=== PATIENT | male | born 1960 | race Caucasian/White ===

== ENCOUNTER 2018-04-28 10:37 | Emergency (ER) | payer MEDICAID ==
--- NOTE | 2018-04-28 10:45 | ER Document Report ---
ED General - General Stated Complaint: PSYCH EVAL Time Seen by Provider: 04/28/18 10:40 Mode of Arrival: Medic Information source: Emergency Med Personnel Cannot obtain history due to: Altered mental status Notes: Approximately 49-year-old Ashvin Stauffer presents by EMS altered. Patient does not respond to any questions appropriately, he is rhyming and speaks only of his toe saying he "has an ugly toe looking at me looking at you" Patient was found by EMS and no family members there is no identification patient does not appear to have been here previously as I did not recognize him nor does any other staff members - HPI Onset: Just prior to arrival Onset/Duration: Sudden Quality of pain: No pain Severity: Severe Pain Level: Denies Associated symptoms: Other Exacerbated by: Denies Relieved by: Denies Similar symptoms previously: No Recently seen / treated by doctor: No Past Medical History - Social History Smoking Status: Unknown if Ever Smoked Cigarette use (# per day): No Chew tobacco use (# tins/day): No Smoking Education Provided: No Family History: None Review of Systems - Review of Systems Notes: PHYSICAL EXAMINATION: GENERAL: Well-appearing, well-nourished and in no acute distress. HEAD: Atraumatic, normocephalic. EYES: Pupils equal round and reactive to light, extraocular movements intact, sclera anicteric, conjunctiva are normal. ENT: Nares patent, oropharynx clear without exudates. Moist mucous membranes. NECK: Normal range of motion, supple without lymphadenopathy LUNGS: Breath sounds clear to auscultation bilaterally and equal. No wheezes rales or rhonchi. HEART: Regular rate and rhythm without murmurs ABDOMEN: Soft, nontender, nondistended abdomen. No guarding, no rebound. No masses appreciated. Musculoskeletal: Normal range of motion, no pitting or edema. No cyanosis. NEUROLOGICAL: Cranial nerves grossly intact. Abnormal speech, normal gait. Normal sensory, motor exams PSYCH: Bizarre behavior SKIN: Warm, Dry, normal turgor, no rashes or lesions noted. -: Yes ROS unobtainable due to patient's medical condition Physical Exam - Vital signs Vitals: Temp Pulse Resp BP Pulse Ox 97.4 F 91 14 154/120 H 97 04/28/18 10:42 04/28/18 10:42 04/28/18 10:42 04/28/18 10:42 04/28/18 10:42 Course - Re-evaluation Re-evalutation: 04/28/18 10:44 Patient's presentation appears to be psychiatric versus drug related however will need to rule out stroke meningitis and other abnormalities this is a very unclear and quite confusing case 04/28/18 11:08 EMS was able to obtain the name, appears patient was seen here 2 days prior diagnosed with malingering/substance abuse - Vital Signs Vital signs: Temp Pulse Resp BP Pulse Ox 97.4 F 91 18 154/120 H 97 04/28/18 10:42 04/28/18 10:42 04/28/18 11:55 04/28/18 10:42 04/28/18 10:42 - Laboratory Result Diagrams: 04/28/18 11:12 04/28/18 11:12 Laboratory results interpreted by me: 04/28/18 04/28/18 11:12 11:31 Sodium 146.4 H Potassium 3.1 L Carbon Dioxide 31 H BUN 23 H Glucose 125 H Direct Bilirubin 0.5 H AST 64 H Creatine Kinase 933 H Total Protein 8.8 H Urine Protein 30 H Urine Ketones 20 H Urine Urobilinogen 4.0 H Salicylates < 1.0 L Acetaminophen < 10 L Discharge - Discharge Clinical Impression: Psychosis Qualifiers: Psychosis type: unspecified psychosis type Qualified Code(s): F29 - Unspecified psychosis not due to a substance or known physiological condition Condition: Stable Disposition: PSYCH HOSP/UNIT
--- NOTE | 2018-04-28 11:08 | RADIOLOGY REPORT (SQ) ---
EXAM DESCRIPTION: CT HEAD WITHOUT COMPLETED DATE/TIME: 04/28/2018 10:56 am REASON FOR STUDY: altered COMPARISON: None. TECHNIQUE: Axial images acquired through the brain without intravenous contrast. Images reviewed wi th bone, brain and subdural windows. Additional sagittal and coronal reconstructions were generated. Images stored on PACS. All CT scanners at this facility use dose modulation, iterative reconstruction, and/or weight based d osing when appropriate to reduce radiation dose to as low as reasonably achievable (ALARA). [facility]: Dose Right [facility]: CareDose [facility]: Dose Right [facility]: Teradose 4D [facility]: [employer] RADIATION DOSE: CT Rad equipment meets quality standard of care and radiation dose reduction techniq ues were employed. CTDIvol: 53.2 mGy. DLP: 1124 mGy-cm. mGy. LIMITATIONS: None. FINDINGS: VENTRICLES: Normal size and contour. CEREBRUM: No masses. No hemorrhage. No midline shift. No evidence for acute infarction. Normal gra y/white matter differentiation. No areas of low density in the white matter. CEREBELLUM: No masses. No hemorrhage. No alteration of density. No evidence for acute infarction. EXTRAAXIAL SPACES: No fluid collections. No masses. ORBITS AND GLOBE: No intra- or extraconal masses. Normal contour of globe without masses. CALVARIUM: No fracture. PARANASAL SINUSES: No fluid or mucosal thickening. SOFT TISSUES: No mass or hematoma. OTHER: No other significant finding. IMPRESSION: NORMAL BRAIN CT WITHOUT CONTRAST. Results discussed with Dr. Aguilera EVIDENCE OF ACUTE STROKE: NO. COMMENT: Quality ID # [id number]: Final reports with documentation of one or more dose reduction techniques (e.g., Automated exposure control, adjustment of the mA and/or kV according to patient size, use of iterative reconstruction technique) TECHNICAL DOCUMENTATION: JOB ID: [id number] [employer]- All Rights Reserved Reading location - IP/workstation name: [email or web address]
[2018-04-28] MEDS ORDERED: HALOPERIDOL LACTATE INJ 5 MG/1 ML VIAL IV ONE (11:35)
[2018-04-28] MEDS ORDERED: DIPHENHYDRAMINE HCL 50 MG/ML VIAL IV ONE (11:35)
[2018-04-28 11:43] LABS: ABSOLUTE BASOPHILS # (AUTO) 0.1 10^3/uL (0.0-0.2); ABSOLUTE LYMPHOCYTES (AUTO) 1.1 10^3/uL (0.5-4.7); ABSOLUTE MONOCYTES (AUTO) 0.5 10^3/uL (0.1-1.4); ABSOLUTE NEUT (AUTO) 4.5 10^3/uL (1.7-8.2); BASOPHILS % (AUTO) 0.8 % (0-2); EOSINOPHILS % (AUTO) 0.4 % (0-6); HEMATOCRIT 41.4 % (37.9-51.0); HEMOGLOBIN 13.9 g/dL (13.5-17.0); LYMPHOCYTES % (AUTO) 17.7 % (13-45); MEAN CORPUSCULAR HEMOGLOBIN 30.3 pg (27.0-33.4); MEAN CORPUSCULAR HGB CONC 33.6 g/dL (32.0-36.0); MEAN CORPUSCULAR VOLUME 90 fl (80-97); MONOCYTES % (AUTO) 7.5 % (3-13); PLATELET COUNT 160 10^3/uL (150-450); RED CELL DISTRIBUTION WIDTH 13.6 % (11.5-14.0); SEGMENTED NEUTROPHILS % (AUTO) 73.6 % (42-78); TOTAL CELLS COUNTED % (AUTO) 100 %; WHITE BLOOD COUNT 6.2 10^3/uL (4.0-10.5)
[2018-04-28] MEDS ORDERED: HALOPERIDOL LACTATE INJ 5 MG/1 ML VIAL IM ONE (11:46)
[2018-04-28] MEDS ORDERED: DIPHENHYDRAMINE HCL 50 MG/ML VIAL IM ONE (11:46)
[2018-04-28 12:03] LABS: AMORPHOUS SEDIMENT,URINE TRACE /HPF; APPEARANCE,URINE CLOUDY; BILIRUBIN,URINE NEGATIVE (NEGATIVE); COLOR,URINE YELLOW; GLUCOSE, URINE NEGATIVE (NEGATIVE); KETONES,URINE 20 mg/dL (NEGATIVE); LEUKOCYTE ESTERASE,URINE NEGATIVE (NEGATIVE); NITRITE,URINE NEGATIVE (NEGATIVE); PROTEIN,URINE 30 mg/dL (NEGATIVE)
[2018-04-28 12:07] LABS: ALANINE AMINOTRANSFERASE 41 U/L (21-72); ALBUMIN 4.7 g/dL (3.5-5.0); ALKALINE PHOSPHATASE 64 U/L (38-126); ANION GAP 12 (5-19); ASPARTATE AMINO TRANSFERASE 64 U/L (17-59); BILIRUBIN,DIRECT 0.5 mg/dL (0.0-0.4); BILIRUBIN,TOTAL 0.8 mg/dL (0.2-1.3); BLOOD UREA NITROGEN 23 mg/dL (7-20); CALCIUM 9.1 mg/dL (8.4-10.2); CARBON DIOXIDE 31 mmol/L (22-30); CHLORIDE 103 mmol/L (98-107); CREATINE KINASE 933 U/L (55-170); GLUCOSE 125 mg/dL (75-110); POTASSIUM 3.1 mmol/L (3.6-5.0); SODIUM 146.4 mmol/L (137-145); TOTAL PROTEIN 8.8 g/dL (6.3-8.2)
[2018-04-28 12:08] LABS: ACETAMINOPHEN < 10 ug/mL (10-30); SALICYLATE < 1.0 mg/dL (2.0-20.0)
[2018-04-28 12:18] LABS: URINE AMPHETAMINES SCREEN NEGATIVE; URINE BARBITURATES SCREEN NEGATIVE; URINE COCAINE SCREEN NEGATIVE; URINE MARIJUANA (THC) SCREEN UNCONFIRMED POSITIVE; URINE METHADONE SCREEN NEGATIVE; URINE PHENCYCLIDINE SCREEN NEGATIVE
[2018-04-28 12:19] LABS: URINE BENZODIAZEPINES SCREEN UNCONFIRMED POSITIVE
[2018-04-28 12:54] LABS: CREATINE KINASE MB 5.14 ng/mL (<4.55)
[2018-04-28 12:55] LABS: TROPONIN I < 0.012 ng/mL
--- NOTE | 2018-04-28 14:30 | PSYCHOLOGICAL NOTE ---
Psych Note - Psych Note Psych Note: Reason for Consult: Altered Mental Status Consent Permissions: none given PLEASE NOTE THIS PATIENT IS A KNOWN MALINGERER AND HAS BEEN EVALUATED BY DR. DURON MULTIPLE TIMES IN MULTIPLE SETTINGS. HE WILL PRESENT AGITATED AND YELLING. PLEASE CONSULT DR. DURON BEFORE PLACING ON IVC OR GIVING ANY MEDICATION TO INCLUDE ANTIPSYCHOTICS HE GENERALLY HAS A PROLONGED QT AND IS SEEKING ANTIPSYCHOTIC MEDICATIONS AND ADDICTIVE MEDICATIONS. Pt presented to the ED via EMS with complaints of "acting bizzare." Pt was found by EMS only speaking in rhyming words. Pt was not able to be identified at the scene. Pt only speaking in rhyming word. Pt not combative but not following commands. Patient was noted to be rhyming his words (even when yelling), not re- directible and combative. He required medication intervention. upon awakening , he conversted with his attending nurse. He was noted to have normal rate, note and prosody for conversational speech. He disclosed to his nurse that he smoked marijuana that was laced with Special K. He continued to ask he was going to be discharged. Clinician entered minutes after the patient spoke with his attending nurse. He initially refused to engaged, just shaking his head back and forth to any questions asked. When it was pointed out that the patient just was taking with his nurse the patient turned his head away. Clinician explained to the patient that if he refused to engage with this clinician the recommendation of discharge would have to be submitted; the patient immediately made eye contact and stated, "I'm scared...of everything." Clinician attempted to discuss the patient's substance abuse; however, the patient refused to further engage. Patient was alert and oriented to person, place, time, and circumstance. He present to [facility] Ed under the influence to THC laced with Special K. He was rhyming all his conversational speech and combative. Patient is no longer under the influence, he had goal oriented conversations that were linear, organized, and logical to [facility] ED staff. He is 100% reactive to circumstances in his environment. attention and concentration are fair. insight, judgment and impulse control are historically poor due to substance abuse. Diagnoses: 1. Malingering 2. PolySubstance Dependence Disorder (Alcohol, Benzodiazepines, Opioids, Methamphetamine, Cocaine, etc.) Impression / Plan: Patient is cleared from acute psychiatric services. Patient is well known to the behavioral health team. Patient is known to utilize the mental health system often to meet his social needs. He has had over 40+ commitments to inpatient psychiatric hospitals and has an extensive legal history and substance abuse history. Patient is known to use the mental health system in an effort to gain addictive medications such as suboxone, methadone, benzodiazepines, narcotics, and certain antipsychotics. Patient's in January 2016 and since that time he had made multiple visits to multiple hospitals trying to get himself committed to psychiatric facilities. He has a history of reporting suicidal ideation, intent, or plan and at times will report he overdosed on medications, however, lab work does not tend to support his reports. He has a history of manipulation and reports he is homeless yet he is not, and is known to engage in substance use/ abuse with his son (cocaine, methamphetamine, etc.) Dr. Duron was consulted on the care and management of this patient; attending physician is in agreement with recommendations and disposition. Physicians are encouraged to consider the addiction potential of medications before prescribing and the malingering potential of the Patient before placing on IVC.
[2018-04-28 14:55] VITALS: BP 149/77
== END 2018-04-28 14:56 | disposition home or self-care (01) ==
LOC: EDBD → ER 10:37
DX: F12.10 Cannabis abuse, uncomplicated (principal); F13.20 Sedative, hypnotic or anxiolytic dependence, uncomplicated; F10.20 Alcohol dependence, uncomplicated; F14.20 Cocaine dependence, uncomplicated; F11.20 Opioid dependence, uncomplicated; F15.20 Other stimulant dependence, uncomplicated; F29 Unspecified psychosis not due to a substance or known physiological condition; Z76.5 Malingerer [conscious simulation]
CPT/HCPCS: 99285; 96372; 36415; 82553; 82550; 80307 ×3; 85025; 80053; 81001; 84484; 70450; J1200; J1630